=== PATIENT | male | born 1975 | race Caucasian/White ===

== ENCOUNTER 2017-03-12 18:15 | Emergency (ER) | payer OTHER ==
[~2017-03-12] VITALS: Ht 185.4 cm; Wt 86.2 kg
[~2017-03-12 18:15] MED LIST: BENZTROPINE1 MG PO; CLARITIN10 MG PO; COGENTIN0.5 MG PO; ELAVIL10 MG PO; HALDOL0.5 M1 PO; HALDOL5 MG PO; PRILOSEC20 MG PO; TOBREX OPHTH S2.5 ML OPH
[2017-03-12 19:32] LABS: BASO % 0.3 % (0.0-1.0); EOS # 0.2 10*3/uL (0.0-0.4); EOS % 1.7 % (1.0-4.0); HEMOGLOBIN 14.2 g/dl (14.0-18.0); LYMPH # 2.4 10*3/uL (1.3-4.4); LYMPH % 24.4 % (27.0-41.0); MEAN CELL VOLUME 88.7 fl (80.0-94.0); MEAN CORPUSCULAR HGB 29.3 pg (27.0-31.0); MEAN PLATELET VOLUME 10.1 fl (9.6-12.3); MONO # 0.5 10*3/uL (0.1-1.0); MONO % 5.2 % (3.0-9.0); NEUT # 6.6 10*3/uL (2.3-7.9); NEUT % 68.1 % (47.0-73.0); PLATELET COUNT AUTOMATED 266 10*3/uL (130-400); RED BLOOD COUNT 4.85 10*6/uL (4.50-5.90); RED CELL DISTRI WIDTH 13.2 % (0-14.5); WHITE BLOOD COUNT 9.6 10*3/uL (4.8-10.8)
[2017-03-12 19:49] LABS: ALBUMIN 4.3 gm/dl (3.1-4.5); ALKALINE PHOSPHATASE 106 U/L (45-117); BUN 10 mg/dl (7-24); CHLORIDE 106 mmol/L (98-107); POTASSIUM 3.9 mmol/L (3.5-5.1); SGOT/AST 13 IU/L (3-35); SGPT/ALT 18 U/L (12-78); SODIUM 141 mmol/L (136-145)
[2017-03-12 19:57] LABS: TROPONIN I < 0.015 ng/ml (<0.045)
== END 2017-03-12 21:20 | disposition home or self-care (01) ==
LOC: ED 18:15
PROVIDERS: Student in an Organized Health Care Education/Training Program
DX: R20.0 Anesthesia of skin (principal); R20.2 Paresthesia of skin; R53.1 Weakness; F17.200 Nicotine dependence, unspecified, uncomplicated; Z79.899 Other long term (current) drug therapy

== ENCOUNTER 2021-12-26 22:28 | Emergency (ER) | payer MEDICARE ==
[~2021-12-26] VITALS: Ht 185.4 cm; Wt 90.7 kg
[2021-12-26] MEDS ORDERED: LATU120T PO (22:40)
[2021-12-26] MEDS ORDERED: LAMICTAL200 MG PO (22:41)
[2021-12-26] MEDS ORDERED: COGENTIN0.5 MG PO (22:41)
== END 2021-12-27 00:26 | disposition left against medical advice (07) ==
LOC: ED 22:28
DX: Z53.21 Procedure and treatment not carried out due to patient leaving prior to being seen by health care provider (principal)

== ENCOUNTER 2022-03-02 20:29 | Emergency (ER) | payer MEDICARE ==
[~2022-03-02] VITALS: Ht 185.4 cm; Wt 83.9 kg
[~2022-03-02 20:29] MED LIST changes: +LAMICTAL200 MG PO; +LATU120T PO
[2022-03-02] MEDS ORDERED: BUSPIRONE HCL10 MG PO (20:50)
[2022-03-02] MEDS ORDERED: OMEPRAZOLE MAGN20 MG PO (20:50)
[2022-03-02] MEDS ORDERED: ARIPIPRAZOLE15 MG PO (20:50)
[2022-03-02] MEDS ORDERED: CAPLYTA42 MG PO (20:51)
[2022-03-02] MEDS ORDERED: LAMOTRIGINE100 MG PO (20:51)
[2022-03-02 21:14] LABS: BASO % 0.7 % (0.0-1.0); EOS # 0.2 10*3/uL (0.0-0.4); EOS % 3.3 % (1.0-4.0); HEMATOCRIT 39.3 % (42.0-52.0); LYMPH % 34.9 % (27.0-41.0); MEAN CELL VOLUME 91.6 fl (80.0-94.0); MEAN CORPUSCULAR HGB 30.3 pg (27.0-31.0); MEAN CORPUSCULAR HGB CONC 33.1 g/dl (33.0-37.0); MEAN PLATELET VOLUME 10.7 fl (9.6-12.3); MONO # 0.5 10*3/uL (0.1-1.0); MONO % 8.8 % (3.0-9.0); NEUT % 52.1 % (47.0-73.0); PLATELET COUNT AUTOMATED 197 10*3/uL (130-400); RED BLOOD COUNT 4.29 10*6/uL (4.50-5.90); RED CELL DISTRI WIDTH 12.3 % (0-14.5); WHITE BLOOD COUNT 5.7 10*3/uL (4.8-10.8)
[2022-03-02 21:24] LABS: ACT PARTIAL THROMBO TIME 26.8 SECONDS (20.0-32.1)
[2022-03-02 21:32] LABS: ALKALINE PHOSPHATASE 65 U/L (46-116); BUN 8 mg/dl (9-23); CHLORIDE 102 mmol/L (98-107); POTASSIUM 3.6 mmol/L (3.4-5.1); SGPT/ALT 14 U/L (10-49); TOTAL PROTEIN 6.7 gm/dL (6.0-8.0)
== END 2022-03-02 23:07 | disposition home or self-care (01) ==
LOC: ED 20:29
PROVIDERS: Emergency Medicine
DX: R06.02 Shortness of breath (principal); Z79.899 Other long term (current) drug therapy; F17.200 Nicotine dependence, unspecified, uncomplicated

== ENCOUNTER 2022-06-02 01:10 | Emergency (ER) | payer MEDICARE ==
[~2022-06-02] VITALS: Ht 185.4 cm; Wt 83.9 kg
[~2022-06-02 01:10] MED LIST changes: +ARIPIPRAZOLE15 MG PO; +BUSPIRONE HCL10 MG PO; +CAPLYTA42 MG PO; +LAMOTRIGINE100 MG PO; +OMEPRAZOLE MAGN20 MG PO
[2022-06-02] MEDS ORDERED: LURASIDONE HCL120 MG PO (01:24)
[2022-06-02] MEDS ORDERED: QUETIAPINE FUMA50 M1 PO (01:24)
[2022-06-02] MEDS ORDERED: BENZTROPINE ME0.5 MG PO (01:25)
[2022-06-02 01:41] LABS: BASO % 0.3 % (0.0-1.0); EOS # 0.3 10*3/uL (0.0-0.4); EOS % 3.6 % (1.0-4.0); HEMATOCRIT 38.6 % (42.0-52.0); LYMPH # 2.4 10*3/uL (1.3-4.4); MEAN CELL VOLUME 88.3 fl (80.0-94.0); MEAN CORPUSCULAR HGB 30.7 pg (27.0-31.0); MEAN CORPUSCULAR HGB CONC 34.7 g/dl (33.0-37.0); MEAN PLATELET VOLUME 9.6 fl (9.6-12.3); MONO # 0.7 10*3/uL (0.1-1.0); MONO % 7.4 % (3.0-9.0); NEUT # 5.8 10*3/uL (2.3-7.9); NEUT % 62.4 % (47.0-73.0); PLATELET COUNT AUTOMATED 244 10*3/uL (130-400); RED BLOOD COUNT 4.37 10*6/uL (4.50-5.90); RED CELL DISTRI WIDTH 12.4 % (0-14.5); WHITE BLOOD COUNT 9.4 10*3/uL (4.8-10.8)
[2022-06-02 01:55] LABS: ALKALINE PHOSPHATASE 86 U/L (46-116); BUN 5 mg/dl (9-23); CHLORIDE 99 mmol/L (98-107); ETHYL ALCOHOL < 3.0 mg/dl (<3); POTASSIUM 3.9 mmol/L (3.4-5.1); SGPT/ALT 12 U/L (10-49); TOTAL PROTEIN 7.3 gm/dL (6.0-8.0)
[2022-06-02 02:54] LABS: BILIRUBIN Negative (Negative); BLOOD Negative (Negative); CLARITY Clear (Clear); COLOR Yellow (Yellow); GLUCOSE Negative (Negative); KETONE Negative (Negative); LEUKO ESTERASE Trace (Negative); NITRITE Negative (Negative); SPECIFIC GRAVITY <= 1.005 (1.001-1.030); UROBILINOGEN 0.2 E.U./dl (0.0-1.0)
[2022-06-02 03:02] LABS: URINE AMPHETAMINES Negative (1000ng/ml); URINE BARBITURATES Negative (200ng/ml); URINE BENZODIAZEPINES Negative (200ng/ml); URINE CANNABINOIDS (THC) Negative (50ng/ml); URINE COCAINE Negative (300ng/ml); URINE METHADONE Negative (300ng/ml); URINE OPIATES Negative (300ng/ml); URINE PHENCYCLIDINE Negative (25ng/ml)
== END 2022-06-02 11:01 | disposition home or self-care (01) ==
LOC: ED 01:10
PROVIDERS: Emergency Medicine
DX: F43.20 Adjustment disorder, unspecified (principal); Z20.822 Contact with and (suspected) exposure to COVID-19; Z79.899 Other long term (current) drug therapy; F17.200 Nicotine dependence, unspecified, uncomplicated

== ENCOUNTER 2023-07-28 00:27 | Emergency (ER) | payer MEDICARE ==
[~2023-07-28] VITALS: Ht 185.4 cm; Wt 90.7 kg
[~2023-07-28 00:27] MED LIST changes: +BENZTROPINE ME0.5 MG PO; +LURASIDONE HCL120 MG PO; +QUETIAPINE FUMA50 M1 PO
[2023-07-28] MEDS ORDERED: CLOMIPRAMINE HC75 MG PO (00:39)
[2023-07-28] MEDS ORDERED: Dicyclomine Hydrochloride 20 MG/10 ML OSYR PO STA (00:46)
[2023-07-28] MEDS ORDERED: Lidocaine Hydrochloride 15 ML UDC PO STA (00:46)
[2023-07-28] MEDS ORDERED: MG-AL HYDROXIDE/SIMETICONE 30 ML UDC PO STA (00:46)
[2023-07-28] MEDS ORDERED: Metoclopramide Hydrochloride 10 MG/2 ML AMP IV ONE (00:50)
[2023-07-28] MEDS ORDERED: SODIUM CHLORIDE 0.9% 1,000 ML IV ONE (00:50)
[2023-07-28] MEDS ORDERED: diphenhydrAMINE hydrochloride 50 MG/ML VIAL IV ONE (00:50)
[2023-07-28 01:12] LABS: BASO % 0.7 % (0.0-1.0); EOS % 0.3 % (1.0-4.0); HEMATOCRIT 37.1 % (42.0-52.0); LYMPH # 1.9 10*3/uL (1.3-4.4); MEAN CELL VOLUME 89.2 fl (80.0-94.0); MEAN CORPUSCULAR HGB 30.8 pg (27.0-31.0); MEAN CORPUSCULAR HGB CONC 34.5 g/dl (33.0-37.0); MEAN PLATELET VOLUME 9.6 fl (9.6-12.3); MONO # 0.5 10*3/uL (0.1-1.0); MONO % 8.4 % (3.0-9.0); NEUT # 3.6 10*3/uL (2.3-7.9); NEUT % 59.1 % (47.0-73.0); PLATELET COUNT AUTOMATED 217 10*3/uL (130-400); RED BLOOD COUNT 4.16 10*6/uL (4.50-5.90); WHITE BLOOD COUNT 6.1 10*3/uL (4.8-10.8)
[2023-07-28 01:35] LABS: ALKALINE PHOSPHATASE 100 U/L (46-116); BUN 7 mg/dl (9-23); CHLORIDE 97 mmol/L (98-107); LIPASE 29 U/L (12-53); POTASSIUM 5.6 mmol/L (3.4-5.1); SGPT/ALT 24 U/L (5-49); TOTAL PROTEIN 7.2 gm/dL (6.0-8.0)
[2023-07-28] MEDS ORDERED: INSULIN REGULAR, HUMAN 1 UNIT/0.01 ML IV ONE (02:00)
[2023-07-28] MEDS ORDERED: DEXTROSE 50% 25 GM/50 ML SYR IV ONE (02:00)
[2023-07-28] MEDS ORDERED: Albuterol Sulfate 2.5 MG/3 ML VIAL NEB ONE (02:00)
[2023-07-28] MEDS ORDERED: FUROSEMIDE 40 MG/4 ML VIAL IV ONE (02:00)
[2023-07-28] MEDS ORDERED: DEXTROSE 10 % IN WATER 250 ML DEHP.FR.BG IV ONE (02:30)
[2023-07-28 02:37] LABS: URINE AMPHETAMINES Negative (1000ng/ml); URINE BARBITURATES Negative (200ng/ml); URINE BENZODIAZEPINES Negative (200ng/ml); URINE CANNABINOIDS (THC) Positive (50ng/ml); URINE COCAINE Negative (300ng/ml); URINE METHADONE Negative (300ng/ml); URINE OPIATES Negative (300ng/ml); URINE PHENCYCLIDINE Negative (25ng/ml)
[2023-07-28 04:29] LABS: BUN 7 mg/dl (9-23); CHLORIDE 98 mmol/L (98-107)
[2023-07-28 04:30] LABS: POTASSIUM 3.2 mmol/L (3.4-5.1)
[2023-07-28] MEDS ORDERED: POTASSIUM CHLORIDE 20 MEQ TAB PO ONE (04:40)
== END 2023-07-28 04:44 | disposition home or self-care (01) ==
LOC: ED 00:27
PROVIDERS: Internal Medicine
DX: E87.5 Hyperkalemia (principal); R12 Heartburn; F31.9 Bipolar disorder, unspecified; F41.9 Anxiety disorder, unspecified; Z87.891 Personal history of nicotine dependence